=== PATIENT | male | born 1990 | race Caucasian/White ===

== ENCOUNTER 2018-12-29 21:05 | Emergency (ER) | payer OTHER ==
[~2018-12-29] VITALS: Ht 185.4 cm; Wt 91.7 kg
[2018-12-29] MEDS ORDERED: [UNRECOGNIZED DRUG - OTHER] (21:12)
--- NOTE | 2018-12-29 22:47 | NUR ---
PT ARRIVES TO ED WITH C/O OF INCREASED DIZZY EPISODES THE PAST WEEK. PT REPORTS THAT HE HAS NEVER BEEN ILL AND THESE SYMPTOMS MAKE HIM CONCERNED. PT DOES REPORT HE HAS SEEN A PCP AND UC AND HAS BEEN TOLD EVERYTHING IS OKAY BUT CONTINUES TO HAVE DIZZY SPELLS. PT CONNECTED TO ALL MONITORS. EKG COMPLETED ON ARRIVAL TO ROOM. AWAITING FURTHER ORDERS. CALL LIGHT IN REACH.
--- NOTE | 2018-12-29 23:09 | NUR ---
REPORT TO LILIBETH PERDUE.
[2018-12-29 23:19] LABS: MEAN CORPUSCULAR HEMOGLOBIN 31.1 pg (27.5-34.5); MEAN CORPUSCULAR HGB CONC 35.5 g/dL (33.2-36.2); MEAN CORPUSCULAR VOLUME 87.5 fL (81-97); MEAN PLATELET VOLUME 7.4 fL (7.4-10.4); PLATELET COUNT 273 x10^3/uL (130-400); RED BLOOD COUNT 5.39 x10^6/uL (4.38-5.82); RED CELL DISTRIBUTION WIDTH 12.5 % (9.4-14.8)
--- NOTE | 2018-12-29 23:20 | NUR ---
REPORT FROM [facility] [place]. [facility]. PT REPORTS INTERMITTENT COTTO/DIZZINESS, "I JUST FEEL REALLY OFF" X TUESDAY. PT REPORTS BEING SEEN IN UC FOR SAME WO DEFINITIVE DX, "THEY TOLD ME I WAS JUST STRESSED". SO AT BEDSIDE. PT A&OX4, FACE SYMMETRICAL, SPEECH CLEAR, +STRENGTH X4. DENIES CP/SOB/N/V/D/FEVER. BP/SPO2/ECG MONITORING IN PLACE. NSR ON MONITOR. UA COLLECTED AND SENT TO LAB.
[2018-12-29 23:22] VITALS: BP 141/94
[2018-12-29 23:27] LABS: ALANINE AMINOTRANSFERASE 40 U/L (12-78); ALBUMIN 4.5 g/dL (3.4-5.0); ANION GAP 5 mmol/L (5-15); CALCIUM 8.7 mg/dL (8.5-10.1); CHLORIDE 106 mmol/L (98-107); CREATININE 0.99 mg/dL (0.7-1.3)
[2018-12-29 23:31] LABS: ALKALINE PHOSPHATASE 92 U/L (45-117); BILIRUBIN,TOTAL 0.6 mg/dL (0.2-1.0); TOTAL PROTEIN 7.8 g/dL (6.4-8.2); TROPONIN I < 0.015 ng/mL (0.000-0.045)
[2018-12-29 23:37] LABS: MICROSCOPIC NOT IND
[2018-12-29 23:38] LABS: CULTURE INDICATED? NO
[2018-12-29 23:38] LABS: BASOPHILS # (AUTO) 0.03 x10^3/uL (0-0.1); BASOPHILS % (AUTO) 0 % (0-1); EOSINOPHILS # (AUTO) 0.21 x10^3/uL (0-0.4); EOSINOPHILS % (AUTO) 2 % (1-7); LYMPHOCYTES # (AUTO) 3.26 x10^3/uL (1-3.4); LYMPHOCYTES % (AUTO) 38 % (22-44); MD SCAN; MONOCYTES # (AUTO) 0.58 x10^3/uL (0.2-0.8); MONOCYTES % (AUTO) 7 % (2-9); NEUTROPHILS # (AUTO) 4.49 x10^3/uL (1.8-6.8); NEUTROPHILS % (AUTO) 52 % (42-75)
--- NOTE | 2018-12-30 00:19 | NUR ---
DC EDUCATION PROVIDED, PT DEMONSTRATES UNDERSTANDING. PT AMBULATED STEADILY TO DC WITH RN AND SO. SO TO TRANSPORT PT HOME
== END 2018-12-30 00:21 | disposition home or self-care (01) ==
LOC: ED 22:52
DX: R53.1 Weakness (principal); R31.29 Other microscopic hematuria
CPT/HCPCS: 36415; 80053; 81003; 84484; 85025; 93005; 99284

== ENCOUNTER 2020-02-08 21:59 | Inpatient (IN) | payer OTHER ==
[~2020-02-08] VITALS: Ht 180.3 cm; Wt 96.7 kg
[~2020-02-08 21:59] MED LIST: [UNRECOGNIZED DRUG - OTHER]
[2020-02-08 22:28] LABS: BASOPHILS # (AUTO) 0.03 x10^3/uL (0-0.1); BASOPHILS % (AUTO) 0 % (0-1); EOSINOPHILS # (AUTO) 0.06 x10^3/uL (0-0.4); EOSINOPHILS % (AUTO) 1 % (1-7); LYMPHOCYTES # (AUTO) 1.42 x10^3/uL (1-3.4); LYMPHOCYTES % (AUTO) 19 % (22-44); MD NO; MEAN CORPUSCULAR HEMOGLOBIN 30.8 pg (27.5-34.5); MEAN CORPUSCULAR HGB CONC 34.9 g/dL (33.2-36.2); MEAN CORPUSCULAR VOLUME 88.4 fL (81-97); MEAN PLATELET VOLUME 7.4 fL (7.4-10.4); MONOCYTES # (AUTO) 0.45 x10^3/uL (0.2-0.8); MONOCYTES % (AUTO) 6 % (2-9); NEUTROPHILS # (AUTO) 5.47 x10^3/uL (1.8-6.8); NEUTROPHILS % (AUTO) 74 % (42-75); PLATELET COUNT 250 x10^3/uL (130-400); RED BLOOD COUNT 5.34 x10^6/uL (4.38-5.82); RED CELL DISTRIBUTION WIDTH 11.9 % (9.4-14.8)
--- NOTE | 2020-02-08 22:30 | NUR ---
PT TO ROOM 11 PER [place]. PT WAS GETTING READY FOR BED TONIGHT, AND UPON FINISHING HIS DUTY, SAID SHE HEARD A THUD. FOUND PATIENT FACE DOWN, UNABLE TO REMEMBER WHAT HAPPENED. PT IS AWAKE A/OX3. PT STILL REMAINS UNCLEAR WHAT HAPPENED AT HOME. IS AT BEDSIDE. PT HAS FROM ALL EXTREMITIES, AND DENIES ANY INJURIES. PT DENIES PAIN, OR DRUGS TAKEN. PT IS GOWNED, PLACED ON MONITOR, GIVEN WARM BLANKET, CALL LIGHT WITH INSTRUCTIONS, AND AT BEDSIDE. MD IN TO ASSESS PATIENT AND ORDERS.
[2020-02-08 22:37] LABS: ALANINE AMINOTRANSFERASE 35 U/L (12-78); ALBUMIN 4.2 g/dL (3.4-5.0); ANION GAP 6 mmol/L (5-15); CHLORIDE 105 mmol/L (98-107); CREATININE 0.92 mg/dL (0.7-1.3)
[2020-02-08 22:41] LABS: ALKALINE PHOSPHATASE 77 U/L (45-117); BILIRUBIN,TOTAL 0.8 mg/dL (0.2-1.0); TOTAL PROTEIN 7.5 g/dL (6.4-8.2); TROPONIN I < 0.015 ng/mL (0.000-0.045)
[2020-02-08 22:57] LABS: AMPHETAMINE SCREEN, URINE Negative (Negative); BARBITURATE SCREEN, URINE Negative (Negative); BENZODIAZEPINE SCREEN, URINE Negative (Negative); CANNABINOID SCREEN, URINE Negative (Negative); COCAINE SCREEN, URINE Negative (Negative); METHADONE SCREEN, URINE Negative (Negative); OPIATE SCREEN, URINE Negative (Negative)
[2020-02-08] MEDS ORDERED: ADVAIR INH (23:56)
--- NOTE | 2020-02-08 23:56 | NUR ---
REPORT RECEIVED FROM DEEP PERDUE.
[2020-02-09] MEDS ORDERED: POTASSIUM CHLORIDE 20 MEQ TAB.ER.PRT ONE (00:02)
[2020-02-09] MEDS: POTASSIUM CHLORIDE 20 MEQ TAB.ER.PRT PO ONE ×2 (00:04)
--- NOTE | 2020-02-09 00:09 | NUR ---
AFTER GIVING ONE POTASSIUM PILL, PT VOMITED A LARGE AMOUNT OF EMESIS. UNABLE TO TAKE SECOND PILL.
[2020-02-09] MEDS ORDERED: BISACODYL 10 MG SUPP PR PRN (00:30)
[2020-02-09] MEDS ORDERED: ONDANSETRON ODT 4 MG PO PRN (00:30)
[2020-02-09] MEDS ORDERED: ACETAMINOPHEN 325 MG TABLET PO PRN (00:30)
[2020-02-09] MEDS ORDERED: POLYETHYLENE GLYCOL 17 GM PACKET PO PRN (00:30)
--- NOTE | 2020-02-09 00:41 | NUR ---
REPORT GIVEN TO REGIS PERDUE. PT IS READY FOR TRANSPORT.
[2020-02-09 00:55] VITALS: BP 142/92
[2020-02-09] MEDS ORDERED: ALBU18HF INH (01:06)
[2020-02-09 04:56] LABS: ANION GAP 9 mmol/L (5-15); CHLORIDE 107 mmol/L (98-107); CREATININE 0.84 mg/dL (0.7-1.3)
[2020-02-09 07:40] VITALS: BP 125/79
[2020-02-09 07:45] VITALS: BP 118/83
[2020-02-09 07:49] VITALS: BP 114/80
[2020-02-09] MEDS: SENNA/DOCUSATE TABLET PO SCH (09:00)
[2020-02-09] MEDS: SODIUM CHLORIDE FLUSH 10ML SYR IVF SCH ×2 (09:16→20:59)
[2020-02-09] MEDS ORDERED: GADOTERATE 10 MMOL/20 ML SYR ONE (11:45)
[2020-02-09] MEDS ORDERED: [UNRECOGNIZED DRUG - OTHER] INH PRN (12:30)
[2020-02-09] MEDS: ADVAIR INH SCH (12:30)
[2020-02-09 13:57] VITALS: BP 116/75
[2020-02-09 19:34] VITALS: BP 126/83
[2020-02-10] MEDS: ADVAIR INH SCH (00:30)
[2020-02-10 01:43] VITALS: BP 104/68
[2020-02-10 01:45] VITALS: BP 113/78
[2020-02-10 01:47] VITALS: BP 102/73
[2020-02-10 07:24] VITALS: BP 115/71
[2020-02-10] MEDS: SODIUM CHLORIDE FLUSH 10ML SYR IVF SCH (09:00)
[2020-02-10] MEDS: SENNA/DOCUSATE TABLET PO SCH (09:00)
== END 2020-02-10 10:29 | disposition home or self-care (01) | DRG 312 ==
LOC: ED 22:06 → EDIP 02-09 00:01 → 4WST 02-09 00:51
PROVIDERS: ADMIT Family Medicine; ATTEND Internal Medicine Infectious Disease
DX: R55 Syncope and collapse (principal); E87.6 Hypokalemia; G45.4 Transient global amnesia; J45.909 Unspecified asthma, uncomplicated; Z82.3 Family history of stroke; Z82.49 Family history of ischemic heart disease and other diseases of the circulatory system; Z87.891 Personal history of nicotine dependence
CPT/HCPCS: 36415; 70450; 70553; 80048; 80053; 80307; 83735; 84146; 84443; 84484; 85025; 93005; 93306; 93880; 95819; G0378; A9575

== ENCOUNTER 2020-06-25 12:11 | Emergency (ER) | payer OTHER ==
[~2020-06-25] VITALS: Ht 185.4 cm; Wt 92.3 kg
[~2020-06-25 12:11] MED LIST changes: +ADVAIR INH; +ALBU18HF INH
--- NOTE | 2020-06-25 12:56 | NUR ---
PT PLACED ON ROOM MONITORING. NO CP, SOB, PALPITATIONS OR OTHER SX AT THIS TIME. CALL LIGHT PROVIDED, PT UPDATED ON POC, AT BS.
[2020-06-25 13:15] LABS: BASOPHILS # (AUTO) 0.02 x10^3/uL (0-0.1); BASOPHILS % (AUTO) 0 % (0-1); EOSINOPHILS # (AUTO) 0.05 x10^3/uL (0-0.4); EOSINOPHILS % (AUTO) 1 % (1-7); LYMPHOCYTES # (AUTO) 1.62 x10^3/uL (1-3.4); LYMPHOCYTES % (AUTO) 18 % (22-44); MD NO; MEAN CORPUSCULAR HEMOGLOBIN 30.2 pg (27.5-34.5); MEAN CORPUSCULAR HGB CONC 33.5 g/dL (33.2-36.2); MEAN CORPUSCULAR VOLUME 90.3 fL (81-97); MEAN PLATELET VOLUME 6.9 fL (7.4-10.4); MONOCYTES # (AUTO) 0.44 x10^3/uL (0.2-0.8); MONOCYTES % (AUTO) 5 % (2-9); NEUTROPHILS # (AUTO) 6.67 x10^3/uL (1.8-6.8); NEUTROPHILS % (AUTO) 76 % (42-75); PLATELET COUNT 245 x10^3/uL (130-400); RED BLOOD COUNT 5.31 x10^6/uL (4.38-5.82); RED CELL DISTRIBUTION WIDTH 12.7 % (9.4-14.8)
[2020-06-25 13:26] LABS: ALBUMIN 4.2 g/dL (3.4-5.0); ANION GAP 6 mmol/L (5-15); CALCIUM 8.5 mg/dL (8.5-10.1); CHLORIDE 105 mmol/L (98-107)
[2020-06-25 13:32] LABS: ALANINE AMINOTRANSFERASE 33 U/L (12-78); ALKALINE PHOSPHATASE 80 U/L (45-117); CREATININE 0.82 mg/dL (0.7-1.3); TOTAL PROTEIN 7.6 g/dL (6.4-8.2); TROPONIN I < 0.015 ng/mL (0.000-0.045)
--- NOTE | 2020-06-25 13:43 | NUR ---
ALL RESULTS BACK, PT FOR RECHECK.
[2020-06-25 13:56] VITALS: BP 129/76
== END 2020-06-25 14:01 | disposition home or self-care (01) ==
LOC: ED 13:50
DX: R00.2 Palpitations (principal); R07.89 Other chest pain; E87.6 Hypokalemia; J45.909 Unspecified asthma, uncomplicated
CPT/HCPCS: 36415; 71045; 80053; 84484; 85025; 93005; 99285

== ENCOUNTER 2021-05-27 13:47 | Emergency (ER) | payer OTHER ==
[~2021-05-27] VITALS: Ht 185.4 cm; Wt 97.7 kg
--- NOTE | 2021-05-27 14:25 | NUR ---
PT IN GOWN IN [facility]. DR HUGGINS AT FOR PT HISTORY AND ASSESSMENT. PT ATTACHED TO VS AND CARDIAC MONITORS. PT EDUCATED ON ER PROCESS AND POC AND VERBALIZES UNDERSTANDING. PT HAS CALL LIGHT WITHIN REACH OF PT AND DENIES ANY OTHER NEEDS AT THIS TIME.
[2021-05-27 14:57] LABS: BASOPHILS % (AUTO) 0 % (0-1); EOSINOPHILS % (AUTO) 1 % (1-7); LYMPHOCYTES % (AUTO) 19 % (22-44); MEAN CORPUSCULAR HEMOGLOBIN 31.6 pg (27.5-34.5); MEAN PLATELET VOLUME 7.4 fL (7.4-10.4); MONOCYTES % (AUTO) 8 % (2-9); NEUTROPHILS % (AUTO) 72 % (42-75); PLATELET COUNT 261 x10^3/uL (130-400); RED BLOOD COUNT 5.23 x10^6/uL (4.38-5.82); RED CELL DISTRIBUTION WIDTH 12.5 % (9.4-14.8)
[2021-05-27 15:04] LABS: ALBUMIN 4.1 g/dL (3.4-5.0); ANION GAP 5 mmol/L (5-15); CALCIUM 8.6 mg/dL (8.5-10.1); CHLORIDE 106 mmol/L (98-107); CREATININE 0.87 mg/dL (0.7-1.3)
[2021-05-27 15:14] LABS: TROPONIN I < 0.015 ng/mL (0.000-0.045)
[2021-05-27 15:21] LABS: HEMOGRAM NOTE RECHECKED
--- NOTE | 2021-05-27 15:32 | NUR ---
PT VSS AND UPDATED IN EMR. PT HAS CALL LIGHT WITHIN REACH AT THIS TIME.
--- NOTE | 2021-05-27 16:22 | NUR ---
PT D/C WITH D/C SUMMARY. ALL QUESTIONS ANSWERED. PT AMBULATES TO REGISTRATION DESK WITH STEADY GAIT FOR D/C HOME AND DENIES ANY OTHER NEEDS PERTAINING TO THIS VISIT. PT D/C WITH FOR SAFE D/C HOME IN PERSONAL VEHICLE. PT VSS.
[2021-05-27 16:23] VITALS: BP 124/76
== END 2021-05-27 16:29 | disposition home or self-care (01) ==
LOC: ED 14:24
DX: R55 Syncope and collapse (principal); R00.2 Palpitations; R42 Dizziness and giddiness; H57.89 Other specified disorders of eye and adnexa; R07.9 Chest pain, unspecified; J45.909 Unspecified asthma, uncomplicated
CPT/HCPCS: 36415; 71045; 80048; 82040; 84443; 84484; 85025; 93005; 99285